=== PATIENT | male | born 1955 | race Caucasian/White ===

== ENCOUNTER 2017-12-12 14:48 | Emergency (ER) | payer SELFPAY ==
[2017-12-12] MEDS ORDERED: NS 0.9% 1000 ML* 1,000 ML IV ONE (15:25)
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
[2017-12-12 15:38] LABS: ABS Basophils 0.1 10^3/ul (0-0.2); ABS Eosinophils 0.1 10^3/ul (0-0.6); ABS Lymphocytes 1.8 10^3/ul (1.0-4.8); ABS Monocytes 0.7 10^3/ul (0-0.8); ABS Neutrophils 5.5 10^3/ul (1.5-7.7); ABS Nucleated RBC 0 10^3/ul; Eosinophil % 0.9 % (0-6); Hematocrit 47 % (42-52); Hemoglobin 16.4 g/dl (14.0-18.0); Mean Corpuscular HGB Conc 35 g/dl (31-36); Mean Corpuscular Hemoglobin 31 pg (27-31); Mean Corpuscular Volume 87 fL (80-94); Mean Platelet Volume 7.8 um3 (7.4-10.4); Nucleated Red Blood Cells % 0.1; Platelet Count 202 10^3/ul (150-450); Red Blood Count 5.37 10^6/ul (4.00-5.40); Red Cell Distribution Width 14 % (10.5-15); White Blood Count 8.1 10^3/ul (3.5-10.8)
[2017-12-12 15:46] LABS: INR 1.02 (0.77-1.02)
[2017-12-12 16:37] VITALS: BP 127/81
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
== END 2017-12-12 16:36 | disposition short-term general hospital (02) ==
LOC: ED 14:48
DX: T54.3X1A Toxic effect of corrosive alkalis and alkali-like substances, accidental (unintentional), initial encounter (principal); T28.6XXA Corrosion of esophagus, initial encounter; Y92.818 Other transport vehicle as the place of occurrence of the external cause
CPT/HCPCS: 36415; 71046; 80053; 85025; 85610; 85730; 93005; 96360; 99284

== ENCOUNTER 2020-08-23 09:50 | Inpatient (IN) ==
[2020-08-23] MEDS ORDERED: NS 0.9% 1000 ml BAG 1,000 ML IV ONE (10:17)
[2020-08-23 10:34] LABS: ABS Lymphocytes 1.1 10^3/ul (1.0-4.8); ABS Monocytes 0.7 10^3/ul (0-0.8); ABS Neutrophils 6.7 10^3/ul (1.5-7.7); Eosinophil % 0.1 %; Hematocrit 48 % (42-52); Hemoglobin 17.2 g/dL (14.0-18.0); Lymphocyte % 13.4 %; Mean Corpuscular HGB Conc 36 g/dL (31-36); Mean Corpuscular Hemoglobin 30 pg (27-31); Mean Corpuscular Volume 85 fL (80-94); Mean Platelet Volume 7.4 fL (7.4-10.4); Nucleated Red Blood Cells % 0.1; Platelet Count 193 10^3/uL (150-450); Red Blood Count 5.66 10^6 /uL (4.18-5.48); Red Cell Distribution Width 14 % (10-15); White Blood Count 8.6 10^3/uL (3.5-10.8)
[2020-08-23 10:44] LABS: Activated Partial Thrombo Time 31.9 seconds (26.0-38.0); INR 1.21 (0.82-1.09)
[2020-08-23 11:15] LABS: Troponin I 0.25 ng/mL (<0.03)
[2020-08-23 11:18] LABS: ALT 34 U/L (7-52); AST 41 U/L (13-39); Albumin 3.8 g/dL (3.2-5.2); Albumin/Globulin Ratio 1.2 (1-3); Alkaline Phosphatase 56 U/L (34-104); Anion Gap 10 mmol/L (2-11); Blood Urea Nitrogen 19 mg/dL (6-24); C Reactive Protein 94.39 mg/L (<8.01); CO2 Carbon Dioxide 24 mmol/L (22-32); Calcium 8.7 mg/dL (8.6-10.3); Chloride 101 mmol/L (101-111); EGFR African American 91.3 (>60); EGFR Non-African American 75.5 (>60); Globulin 3.3 g/dL (2-4); Glucose 125 mg/dL (70-100); Potassium 3.6 mmol/L (3.5-5.0); Sodium 135 mmol/L (135-145); Total Protein 7.1 g/dL (6.4-8.9)
[2020-08-23 11:30] LABS: LDH 408 U/L (140-271)
[2020-08-23] MEDS ORDERED: Iohexol 300 (CONTRAST) 10 ML SDV IV ONE (11:34)
[2020-08-23] MEDS ORDERED: Iohexol 350 (CONTRAST) 500 ML MDV IV ONE (11:38)
[2020-08-23 11:49] LABS: Ferritin 1020.8 ng/mL (24-336)
[2020-08-23] MEDS ORDERED: Enoxaparin 40 MG/0.4 ML SYR SUBCUT SCH (13:00)
[2020-08-23] MEDS ORDERED: Remdesivir 100 mg Vial 200 MG in NS 0.9% 250 ml 210 ML IV ONE (13:02)
[2020-08-23] MEDS ORDERED: Dexamethasone IV 4 MG/ML VIAL 1 ml VIAL IV SLOW PU ONE (13:02)
[2020-08-24 06:42] LABS: INR 1.24 (0.82-1.09)
[2020-08-24] MEDS ORDERED: Tocilizumab 200 MG/10 ML 10 ml VIAL IVPB ONE (12:47)
[2020-08-24] MEDS ORDERED: TOCILIZUMAB IVPB ONE (13:30)
[2020-08-24] MEDS ORDERED: NS 0.9% IVPB ONE (13:30)
[2020-08-24 13:39] LABS: ABS Lymphocytes 0.7 10^3/ul (1.0-4.8); ABS Monocytes 0.9 10^3/ul (0-0.8); ABS Neutrophils 7.3 10^3/ul (1.5-7.7); Hematocrit 43 % (42-52); Hemoglobin 15.3 g/dL (14.0-18.0); Lymphocyte % 7.8 %; Mean Corpuscular HGB Conc 35 g/dL (31-36); Mean Corpuscular Hemoglobin 30 pg (27-31); Mean Corpuscular Volume 85 fL (80-94); Mean Platelet Volume 7.5 fL (7.4-10.4); Nucleated Red Blood Cells % 0.1; Platelet Count 223 10^3/uL (150-450); Red Blood Count 5.09 10^6 /uL (4.18-5.48); Red Cell Distribution Width 13 % (10-15); White Blood Count 8.8 10^3/uL (3.5-10.8)
[2020-08-24 14:03] LABS: Albumin 3.1 g/dL (3.2-5.2); Albumin/Globulin Ratio 1.1 (1-3); BUN/Creatinine Ratio 24.1 (8-20); C Reactive Protein 69.31 mg/L (<8.01); Calcium 8.4 mg/dL (8.6-10.3); EGFR African American 119.9 (>60); EGFR Non-African American 99.1 (>60); Globulin 2.8 g/dL (2-4); Potassium 3.9 mmol/L (3.5-5.0); Total Bilirubin 0.7 mg/dL (0.2-1.0); Total Protein 5.9 g/dL (6.4-8.9)
[2020-08-24] MEDS: Enoxaparin 60 MG/0.6 ML SYR SUBCUT SCH (15:56)
[2020-08-24] MEDS: Remdesivir 100 mg Vial 100 MG in NS 0.9% 250 ml 230 ML IV SCH (21:45)
[2020-08-25] MEDS: Enoxaparin 60 MG/0.6 ML SYR SUBCUT SCH ×2 (01:53→12:39)
[2020-08-25 06:48] LABS: ABS Lymphocytes 0.9 10^3/ul (1.0-4.8); ABS Monocytes 0.9 10^3/ul (0-0.8); ABS Neutrophils 7.2 10^3/ul (1.5-7.7); Hematocrit 43 % (42-52); Mean Corpuscular HGB Conc 35 g/dL (31-36); Mean Corpuscular Hemoglobin 30 pg (27-31); Mean Corpuscular Volume 86 fL (80-94); Mean Platelet Volume 8.2 fL (7.4-10.4); Platelet Count 247 10^3/uL (150-450); Red Blood Count 4.99 10^6 /uL (4.18-5.48); Red Cell Distribution Width 13 % (10-15); White Blood Count 8.9 10^3/uL (3.5-10.8)
[2020-08-25 07:09] LABS: BUN/Creatinine Ratio 25.3 (8-20); Calcium 8.3 mg/dL (8.6-10.3); EGFR African American 107.2 (>60); EGFR Non-African American 88.6 (>60); Potassium 4.1 mmol/L (3.5-5.0)
[2020-08-25 07:25] LABS: INR 1.38 (0.82-1.09)
[2020-08-25] MEDS: Remdesivir 100 mg Vial 100 MG in NS 0.9% 250 ml 230 ML IV SCH (21:31)
[2020-08-26] MEDS: Enoxaparin 60 MG/0.6 ML SYR SUBCUT SCH ×2 (01:15→14:36)
[2020-08-26 01:59] LABS: INR 1.4 (0.82-1.09)
[2020-08-26] MEDS: Pantoprazole VIAL 40 MG VIAL IV SCH (08:31)
[2020-08-26 15:07] LABS: ABS Lymphocytes 0.9 10^3/ul (1.0-4.8); ABS Monocytes 0.8 10^3/ul (0-0.8); Hematocrit 49 % (42-52); Hemoglobin 17.3 g/dL (14.0-18.0); Lymphocyte % 8.4 %; Mean Corpuscular HGB Conc 35 g/dL (31-36); Mean Corpuscular Hemoglobin 31 pg (27-31); Mean Corpuscular Volume 87 fL (80-94); Mean Platelet Volume 7.9 fL (7.4-10.4); Nucleated Red Blood Cells % 0.2; Platelet Count 316 10^3/uL (150-450); Red Blood Count 5.68 10^6 /uL (4.18-5.48); Red Cell Distribution Width 13 % (10-15); White Blood Count 10.7 10^3/uL (3.5-10.8)
[2020-08-26 15:21] LABS: Albumin 3.1 g/dL (3.2-5.2); BUN/Creatinine Ratio 26.3 (8-20); Calcium 8.5 mg/dL (8.6-10.3); EGFR African American 96.9 (>60); EGFR Non-African American 80.1 (>60); Potassium 4.7 mmol/L (3.5-5.0); Total Bilirubin 0.7 mg/dL (0.2-1.0); Total Protein 6.1 g/dL (6.4-8.9)
[2020-08-26] MEDS: Remdesivir 100 mg Vial 100 MG in NS 0.9% 250 ml 230 ML IV SCH (21:36)
[2020-08-27] MEDS: Enoxaparin 60 MG/0.6 ML SYR SUBCUT SCH ×2 (01:11→15:27)
[2020-08-27 07:03] LABS: ABS Lymphocytes 1.1 10^3/ul (1.0-4.8); ABS Monocytes 0.8 10^3/ul (0-0.8); ABS Neutrophils 9.4 10^3/ul (1.5-7.7); Hematocrit 46 % (42-52); Hemoglobin 16.2 g/dL (14.0-18.0); Lymphocyte % 9.4 %; Mean Corpuscular HGB Conc 35 g/dL (31-36); Mean Corpuscular Hemoglobin 30 pg (27-31); Mean Corpuscular Volume 86 fL (80-94); Mean Platelet Volume 7.5 fL (7.4-10.4); Nucleated Red Blood Cells % 0.1; Platelet Count 316 10^3/uL (150-450); Red Blood Count 5.36 10^6 /uL (4.18-5.48); Red Cell Distribution Width 13 % (10-15); White Blood Count 11.3 10^3/uL (3.5-10.8)
[2020-08-27 07:10] LABS: INR 1.35 (0.82-1.09)
[2020-08-27 07:22] LABS: Albumin 2.9 g/dL (3.2-5.2); Albumin/Globulin Ratio 1.2 (1-3); BUN/Creatinine Ratio 25.3 (8-20); Calcium 8.1 mg/dL (8.6-10.3); EGFR African American 107.2 (>60); EGFR Non-African American 88.6 (>60); Globulin 2.5 g/dL (2-4); Potassium 4.5 mmol/L (3.5-5.0); Total Bilirubin 0.6 mg/dL (0.2-1.0); Total Protein 5.4 g/dL (6.4-8.9)
[2020-08-27] MEDS: Pantoprazole VIAL 40 MG VIAL IV SCH (08:23)
[2020-08-27 08:57] LABS: C Reactive Protein 9.19 mg/L (<8.01)
[2020-08-27] MEDS: Remdesivir 100 mg Vial 100 MG in NS 0.9% 250 ml 230 ML IV SCH (21:05)
[2020-08-28] MEDS: Enoxaparin 60 MG/0.6 ML SYR SUBCUT SCH ×2 (00:38→13:22)
[2020-08-28 05:36] LABS: Hematocrit 52 % (42-52); Hemoglobin 18.2 g/dL (14.0-18.0); Mean Corpuscular HGB Conc 35 g/dL (31-36); Mean Corpuscular Hemoglobin 30 pg (27-31); Mean Corpuscular Volume 87 fL (80-94); Mean Platelet Volume 7.6 fL (7.4-10.4); Platelet Count 415 10^3/uL (150-450); Red Blood Count 6.02 10^6 /uL (4.18-5.48); Red Cell Distribution Width 13 % (10-15); White Blood Count 13.7 10^3/uL (3.5-10.8)
[2020-08-28 05:38] LABS: INR 1.3 (0.82-1.09)
[2020-08-28 05:51] LABS: Albumin 3.4 g/dL (3.2-5.2); Albumin/Globulin Ratio 1.1 (1-3); Calcium 8.4 mg/dL (8.6-10.3); EGFR African American 94.6 (>60); EGFR Non-African American 78.2 (>60); Potassium 4.1 mmol/L (3.5-5.0); Total Bilirubin 0.7 mg/dL (0.2-1.0); Total Protein 6.4 g/dL (6.4-8.9)
[2020-08-28 07:46] LABS: ABS Lymphocytes 1.5 10^3/ul (1.0-4.8); ABS Monocytes 0.8 10^3/ul (0-0.8); ABS Neutrophils 11.3 10^3/ul (1.5-7.7); Lymphocyte % 11.3 %; Nucleated Red Blood Cells % 0.2
[2020-08-29] MEDS: Enoxaparin 60 MG/0.6 ML SYR SUBCUT SCH ×2 (00:55→12:34)
[2020-08-29 08:09] LABS: EGFR African American 105.8 (>60); EGFR Non-African American 87.5 (>60); Potassium 4.5 mmol/L (3.5-5.0)
[2020-08-29 10:49] LABS: Hematocrit 47 % (42-52); Hemoglobin 16.3 g/dL (14.0-18.0); Mean Corpuscular HGB Conc 35 g/dL (31-36); Mean Corpuscular Hemoglobin 30 pg (27-31); Mean Corpuscular Volume 86 fL (80-94); Mean Platelet Volume 7.4 fL (7.4-10.4); Platelet Count 305 10^3/uL (150-450); Red Blood Count 5.42 10^6 /uL (4.18-5.48); Red Cell Distribution Width 14 % (10-15); White Blood Count 13.7 10^3/uL (3.5-10.8)
[2020-08-29 11:02] VITALS: BP 106/65
[2020-08-29 14:05] LABS: ABS Lymphocytes 1.2 10^3/ul (1.0-4.8); ABS Monocytes 0.9 10^3/ul (0-0.8); ABS Neutrophils 11.5 10^3/ul (1.5-7.7); Lymphocyte % 8.8 %; Nucleated Red Blood Cells % 0.2
== END 2020-08-29 15:30 | disposition home or self-care (01) | DRG 137 ==
LOC: ED 09:50 → MED 12:58
PROVIDERS: ADMIT Internal Medicine; ATTEND Pediatrics